=== PATIENT | female | born 1995 | race Caucasian/White ===

== ENCOUNTER 2018-07-16 17:55 | Emergency (ER) | payer OTHER ==
[2018-07-16] MEDS ORDERED: NS 1,000 ML IV ONE (18:07)
[2018-07-16] MEDS ORDERED: HYDROmorphONE/DILAUDID 2 MG/ML INJ IVP ONE (18:07)
--- NOTE | 2018-07-16 18:10 | EDPHY ---
H & P Stated Complaint: periumbilical pain x ~6hours Time Seen by Provider: 07/16/18 18:02 HPI/ROS: CHIEF COMPLAINT: Periumbilical pain HISTORY OF PRESENT ILLNESS: The patient is a 22-year-old female who comes to the emergency department complaining of pain around her umbilicus for the last 6 hr. It is focused and exquisite. It hurts with stretching or movement. She denies any kind of injury or trauma. No fever. No vomiting or diarrhea. She has never had pain like this before. No previous surgical history. No urinary symptoms. No vaginal bleeding or discharge. She denies risk of . She is sexually active but is on control. Severity: Severe Modifying factors: None REVIEW OF SYSTEMS: Constitutional: denies: chills, fever, recent illness, recent injury EENTM: denies: blurred vision, double vision, nose congestion Respiratory: denies: cough, shortness of breath Cardiac: denies: chest pain, irregular heart rate, lightheadedness, palpitations Gastrointestinal/Abdominal: See HPI Genitourinary: denies: dysuria, frequency, hematuria, pain Musculoskeletal: denies: joint pain, muscle pain Skin: denies: lesions, rash, jaundice, bruising Neurological: denies: headache, numbness, paresthesia, tingling, dizziness, weakness Hematologic/Lymphatic: denies: blood clots, easy bleeding, easy bruising Immunologic/allergic: denies: HIV/AIDS, transplant 10 systems reviewed and negative except as noted EXAM: GENERAL: Well-appearing, well-nourished and in no acute distress. HEAD: Atraumatic, normocephalic. EYES: Pupils equal round and reactive to light, extraocular movements intact, sclera anicteric, conjunctiva are normal. ENT: TMs normal, nares patent, oropharynx clear without exudates. Moist mucous membranes. NECK: Normal range of motion, supple without lymphadenopathy or JVD. LUNGS: Breath sounds clear to auscultation bilaterally and equal. No wheezes rales or rhonchi. HEART: Regular rate and rhythm without murmurs, rubs or gallops. ABDOMEN: Exquisite focused periumbilical pain, no palpable hernia, normoactive bowel sounds. no rebound. No masses appreciated. BACK: No CVA tenderness, no spinal tenderness, step-offs or deformities EXTREMITIES: Normal range of motion, no pitting or edema. No clubbing or cyanosis. NEUROLOGICAL: Cranial nerves II through XII grossly intact. Normal speech, normal gait. 5/5 strength, normal movement in all extremities, normal sensation , normal reflexes PSYCH: Normal mood, normal affect. SKIN: Warm, dry, normal turgor, no visible rashes or lesions. Source: Patient Exam Limitations: No limitations - Personal History LMP (Females 10-55): 15-21 Days Ago - Medical/Surgical History Hx Asthma: No Hx Chronic Respiratory Disease: No Hx Diabetes: No Hx Cardiac Disease: No Hx Renal Disease: No Hx Cirrhosis: No Hx Alcoholism: No Hx HIV/AIDS: No Hx Splenectomy or Spleen Trauma: No Other PMH: denies - Family History Significant Family History: No pertinent family hx - Social History Smoking Status: Never smoked Alcohol Use: Sober Drug Use: None Constitutional: Initial Vital Signs Temperature (C) 36.7 C 07/16/18 17:57 Heart Rate 72 07/16/18 17:57 Respiratory Rate 18 07/16/18 17:57 Blood Pressure 108/78 07/16/18 17:57 O2 Sat (%) 97 07/16/18 17:57 O2 Delivery Mode Room Air Allergies/Adverse Reactions: amoxicillin Allergy (Verified 07/16/18 17:56) clavulanic acid [From Augmentin] Allergy (Verified 07/16/18 17:57) Home Medications: Medication Instructions Recorded Ortho-Novum 1-35-28 Tablet 07/16/18 Medical Decision Making - Diagnostics Imaging Results: Imaging Impressions Abdomen CT 07/16/18 18:07 Impression: 1. Normal appendix 2. Constipation. 3. Small amount of free fluid in the cul-de-sac of undetermined etiology. Results discussed with Dr. Zane Vann at 7:35 PM. General information for patients regarding this examination can be found at [email or web address]. If you have questions or comments about this report, please contact me at (hospital) or [phone] (cell). Imaging: Discussed imaging studies w/ studio designer Radiologist ED Course/Re-evaluation: 8:00 p.m. the patient's abdominal pain is resolved. His abdominal exam is benign. We discussed her CT and lab results which are reassuring. She has developed some nausea after the pain medication and is now receiving Zofran. Will plan to discharge her at this point but warned her strictly to return if her symptoms worsen or she develops a fever etc. She again denied vaginal bleeding or discharge and does not wish to have a pelvic exam. Differential Diagnosis: Partial list of the Differential diagnosis considered include but were not limited to; ovarian cyst, hernia, appendicitis and although unlikely based on the history and physical exam, I also considered urinary tract infection, kidney stone PID, , cellulitis. I discussed these differential diagnoses and the plan with the patient as well as the usual and expected course. The patient understands that the diagnosis is provisional and that in medicine we are not always correct and that further workup is often warranted. Usual and customary warnings were given. All of the patient's questions were answered. The patient was instructed to return to the emergency department should the symptoms at all worsen or return, otherwise to followup with the physician as we discussed. - Data Points Laboratory Results: Laboratory Results 07/16/18 18:15 07/16/18 18:15 Medications Given: Discontinued Medications Hydromorphone HCl (Dilaudid) 0.5 mg IVP EDNOW ONE Stop: 07/16/18 18:08 Last Admin: 07/16/18 18:24 Dose: 0.5 mg Sodium Chloride (Ns) 1,000 mls @ 0 mls/hr IV EDNOW ONE; Wide Open PRN Reason: Protocol Stop: 07/16/18 18:08 Last Admin: 07/16/18 18:24 Dose: 1,000 mls Ondansetron HCl (Zofran) 4 mg IVP EDNOW ONE Stop: 07/16/18 19:54 Last Admin: 07/16/18 20:01 Dose: 4 mg Promethazine HCl (Phenergan) 25 mg IVP EDNOW ONE Stop: 07/16/18 20:28 Last Admin: 07/16/18 20:30 Dose: 25 mg Departure - Departure Disposition: Home, Routine, Self-Care Clinical Impression: Abdominal pain Qualifiers: Abdominal location: unspecified location Qualified Code(s): R10.9 - Unspecified abdominal pain Condition: Fair Instructions: Acute Abdominal Pain (ED) Referrals: NONE *PRIMARY CARE P,. [Primary Care Provider] - As per Instructions [facility] [Provider Group] - 1-2 days without fail
[2018-07-16 18:46] LABS: PLATELET COUNT 289 10^3/uL (150-400)
[2018-07-16] MEDS ORDERED: IOPAMIDOL (ISOVUE-300) 100 ML BTL ONE (18:56)
[2018-07-16] MEDS ORDERED: ONDANSETRON 4 MG/2 ML VIAL IVP ONE (19:53)
[2018-07-16] MEDS ORDERED: PROMETHAZINE HCL 25 MG/ML INJ IVP ONE (20:27)
[2018-07-16] MEDS ORDERED: PROMETHAZINE HCL 25 MG/ML INJ ONE (20:27)
[2018-07-16 21:23] VITALS: BP 119/73
== END 2018-07-16 21:23 | disposition home or self-care (01) ==
DX: R10.33 Periumbilical pain (principal); E86.9 Volume depletion, unspecified; Z88.0 Allergy status to penicillin
CPT/HCPCS: 96374; J1170; J2405; J2550; Q9967

== ENCOUNTER 2018-07-25 11:40 | Emergency (ER) | payer OTHER ==
[2018-07-25] MEDS ORDERED: NS 1,000 ML IV ONE (13:42)
[2018-07-25] MEDS ORDERED: KETOROLAC 30 MG/1 ML SDV IVP ONE (13:42)
--- NOTE | 2018-07-25 13:42 | EDPHY ---
General Time Seen by Provider: 07/25/18 13:12 Narrative: CHIEF COMPLAINT: Pelvic cramping pain HISTORY OF PRESENT ILLNESS: Patient presents private vehicle with complaints of pelvic pain and cramping. She reports that she has had some pelvic pain and cramping since last Saturday. It has been constant duration but does come and go. It is mild-to- moderate times. Sometimes severe. No vaginal bleeding or discharge. No flank pain. No urinary complaints. No chest pain or shortness of breath. No upper abdominal pain. She has evaluated here with a CT scan last week that shows constipation and normal appendix. She has only had 1 bowel movement since then. She went to [facility] today where pelvic exam was performed. There was reportedly some tenderness on the exam. Pelvic swabs were obtained which were negative for bacterial vaginosis. Urinalysis was reportedly positive for infection. She was sent here for an ultrasound higher level of care. She reports no object intercourse recently. She reports no IV drug use. No other associated complaints or modifying factors. REVIEW OF SYSTEMS: 10 systems were reviewed and negative with the exception of the elements mentioned in the history of present illness. PCP: [facility] SPECIALISTS: None currently PAST MEDICAL HISTORY: None PAST SURGICAL HISTORY: No abdominal surgeries SOCIAL HISTORY: Nonsmoker. Lives independently. FAMILY HISTORY: Noncontributory EXAMINATION: Vitals: Triage VS reviewed General Appearance: Alert, no distress Head: normocephalic, atraumatic Eyes: Pupils equal and round, no conjunctival pallor or injection ENT, Mouth: Mucous membranes moist Neck: Normal inspection, supple, non-tender Respiratory: Lungs are clear to auscultation Cardiovascular: Regular rate and rhythm Gastrointestinal: Abdomen is soft and nondistended. Mild tenderness in the suprapubic abdomen. No tympany rigidity. No guarding. Bowel sounds present all 4 quadrants. CVA tenderness. . Pelvic exam deferred as this was performed just prior to arrival Back: non-tender, no bony abnormalities Neurological: A&O, nonfocal, normal gait Skin: Warm and dry, no rash Extremities: Nontender, no pedal edema Psychiatric: Mood and affect normal DIFFERENTIAL DIAGNOSES: Including but not limited to PID, torsion, ovarian cysts, ruptured ovarian cysts , fibroids, endometriosis MDM: 1:40 p.m. Lower abdominal pelvic pain for the past 10 days. She was sent over from [facility] with a pelvic exam reportedly revealed some generalized tenderness. She was sent here for an ultrasound of the pelvis. She did reported leukocytosis in the urine. Wet prep was documented is negative. Urine test document is negative. She is in no acute distress with lower abdominal pelvic pain. No upper abdominal pain. I have reviewed the information and CT scan from her last visit here. Her vital signs are within limits. She is in no acute distress. 2:40 p.m. Notified by radiologist. Pelvic ultrasound is negative for any acute findings. No free fluid or ovarian cyst. No torsion. I have reviewed the CT scan from last week which did show a moderate amount of constipation. I re-evaluated the patient discussed this. This is highly likely a potential cause of her pain. We also discussed possibility of endometriosis and other non emergent etiologies. I do not feel that pelvic inflammatory disease is likely given her lack of discharge and normal vitals and laboratory studies. We discussed discharge home with MiraLax and magnesium citrate. We discuss antibiotics for her or UTI. She has received IV Rocephin here without any reaction or difficulty. We discussed ED precautions for any worsening pain, fever, flank pain, difficulty urinating or further difficulty with bowel movement. She will be referred to OB and primary care physician for further care. She is comfortable this plan and discharged home stable condition. SUPERVISION: None CONSULTATION: OB referral - Diagnostics Imaging Results: Imaging Impressions Pelvic/Renal Ultrasound 07/25/18 13:43 Impression: Normal ultrasound pelvis. Results called to Bunny Pearl PA-C, at 2:40 PM. Imaging: Discussed imaging studies w/ call center receptionist Radiologist, I viewed and interpreted images myself - History History Review: I reviewed the patient's medical records Smoking Status: Never smoked - Objective Vital Signs: Initial Vital Signs Temperature (C) 98.4 F 07/25/18 11:46 Heart Rate 76 07/25/18 11:46 Respiratory Rate 18 07/25/18 11:46 Blood Pressure 127/86 H 07/25/18 11:46 O2 Sat (%) 98 07/25/18 11:46 O2 Delivery Mode Room Air Allergies/Adverse Reactions: amoxicillin Allergy (Verified 07/25/18 11:48) clavulanic acid [From Augmentin] Allergy (Verified 07/25/18 11:48) Home Medications: Medication Instructions Recorded Ortho-Novum 1-35-28 Tablet 07/16/18 Cephalexin [Keflex (*)] 500 mg PO BID #14 cap 07/25/18 Laboratory Results: Laboratory Results 07/25/18 14:10 07/25/18 14:10 07/25/18 07/25/18 07/25/18 14:10 14:10 14:10 WBC 9.08 10^3/uL 10^3/uL (3.80-9.50) RBC 4.94 10^6/uL 10^6/uL (4.18-5.33) Hgb 14.2 g/dL g/dL (12.6-16.3) Hct 43.1 % % (38.0-47.0) MCV 87.2 fL fL (81.5-99.8) MCH 28.7 pg pg (27.9-34.1) MCHC 32.9 g/dL g/dL (32.4-36.7) RDW 13.1 % % (11.5-15.2) Plt Count 316 10^3/uL 10^3/uL (150-400) MPV 11.3 fL fL (8.7-11.7) Neut % (Auto) 57.9 % % (39.3-74.2) Lymph % (Auto) 32.5 % % (15.0-45.0) [place] % (Auto) 6.4 % % (4.5-13.0) Eos % (Auto) 1.9 % % (0.6-7.6) Baso % (Auto) 1.0 % % (0.3-1.7) Nucleat RBC Rel Count 0.0 % % (0.0-0.2) Absolute Neuts (auto) 5.26 10^3/uL 10^3/uL (1.70-6.50) Absolute Lymphs (auto) 2.95 10^3/uL 10^3/uL (1.00-3.00) Absolute Monos (auto) 0.58 10^3/uL 10^3/uL (0.30-0.80) Absolute Eos (auto) 0.17 10^3/uL 10^3/uL (0.03-0.40) Absolute Basos (auto) 0.09 10^3/uL 10^3/uL (0.02-0.10) Absolute Nucleated RBC 0.00 10^3/uL 10^3/uL (0-0.01) Immature Gran % 0.3 % % (0.0-1.1) Immature Gran # 0.03 10^3/uL 10^3/uL (0.00-0.10) Sodium 140 mEq/L mEq/L (135-145) Potassium 4.6 mEq/L mEq/L (3.5-5.2) Chloride 108 mEq/L mEq/L (97-110) Carbon Dioxide 21 mEq/l L mEq/l (22-31) Anion Gap 11 mEq/L mEq/L (6-14) BUN 12 mg/dL mg/dL (7-23) Creatinine 0.7 mg/dL mg/dL (0.6-1.0) Estimated GFR > 60 Glucose 81 mg/dL mg/dL (70-100) Calcium 9.2 mg/dL mg/dL (8.5-10.4) Total Bilirubin 0.5 mg/dL mg/dL (0.1-1.4) Conjugated Bilirubin 0.1 mg/dL mg/dL (0.0-0.5) Unconjugated Bilirubin 0.4 mg/dL mg/dL (0.0-1.1) AST 25 IU/L IU/L (14-46) ALT 24 IU/L IU/L (9-52) Alkaline Phosphatase 57 IU/L IU/L (38-126) Total Protein 7.4 g/dL g/dL (6.3-8.2) Albumin 4.3 g/dL g/dL (3.5-5.0) Lipase 80 IU/L IU/L (23-300) Beta HCG, Qual NEGATIVE Urine Color Urine Appearance Urine pH Ur Specific [place] Urine Protein Urine Ketones Urine Blood Urine Nitrate Urine Bilirubin Urine Urobilinogen Ur Leukocyte Esterase Urine RBC Urine WBC Ur Epithelial Cells Urine Bacteria Urine Mucus Urine Glucose C.trachomatis RNA (TMA) N.gonorrhoeae RNA (TMA) 07/25/18 07/25/18 14:05 12:45 WBC RBC Hgb Hct MCV MCH MCHC RDW Plt Count MPV Neut % (Auto) Lymph % (Auto) [place] % (Auto) Eos % (Auto) Baso % (Auto) Nucleat RBC Rel Count Absolute Neuts (auto) Absolute Lymphs (auto) Absolute Monos (auto) Absolute Eos (auto) Absolute Basos (auto) Absolute Nucleated RBC Immature Gran % Immature Gran # Sodium Potassium Chloride Carbon Dioxide Anion Gap BUN Creatinine Estimated GFR Glucose Calcium Total Bilirubin Conjugated Bilirubin Unconjugated Bilirubin AST ALT Alkaline Phosphatase Total Protein Albumin Lipase Beta HCG, Qual Urine Color YELLOW Urine Appearance CLEAR Urine pH 5.0 (5.0-7.5) Ur Specific [place] 1.015 (1.002-1.030) Urine Protein NEGATIVE (NEGATIVE) Urine Ketones TRACE H (NEGATIVE) Urine Blood NEGATIVE (NEGATIVE) Urine Nitrate NEGATIVE (NEGATIVE) Urine Bilirubin NEGATIVE (NEGATIVE) Urine Urobilinogen NEGATIVE EU EU (0.2-1.0) Ur Leukocyte Esterase TRACE H (NEGATIVE) Urine RBC 1-3 /hpf /hpf (0-3) Urine WBC 25-50 /hpf H /hpf (0-3) Ur Epithelial Cells TRACE /lpf /lpf (NONE-1+) Urine Bacteria 1+ /hpf H /hpf (NONE SEEN) Urine Mucus TRACE /lpf /lpf (NONE-1+) Urine Glucose NEGATIVE (NEGATIVE) C.trachomatis RNA (TMA) Pending N.gonorrhoeae RNA (TMA) Pending Medications Given: Discontinued Medications Sodium Chloride (Ns) 1,000 mls @ 0 mls/hr IV EDNOW ONE; Wide Open PRN Reason: Protocol Stop: 07/25/18 13:43 Last Admin: 07/25/18 15:14 Dose: 1,000 mls Ceftriaxone Sodium/Dextrose (Rocephin 1 Gm (Premix)) 50 mls @ 100 mls/hr IV EDNOW ONE PRN Reason: Protocol Stop: 07/25/18 14:49 Last Admin: 07/25/18 15:16 Dose: 50 mls Ketorolac Tromethamine (Toradol) 30 mg IVP EDNOW ONE Stop: 07/25/18 13:43 Last Admin: 07/25/18 15:15 Dose: 30 mg Departure - Departure Disposition: Home, Routine, Self-Care Clinical Impression: Constipation Qualifiers: Constipation type: other constipation type Qualified Code(s): K59.09 - Other constipation UTI (urinary tract infection) Qualifiers: Urinary tract infection type: acute cystitis Hematuria presence: without hematuria Qualified Code(s): N30.00 - Acute cystitis without hematuria Abdominal pain Qualifiers: Abdominal location: lower abdomen, unspecified Qualified Code(s): R10.30 - Lower abdominal pain, unspecified Condition: Good Instructions: Constipation (ED), Urinary Tract Infection in Women (ED), High Fiber Diet (ED), Fleet Enema (ED) Additional Instructions: 1. Keflex as prescribed to completion for UTI 2. Recommend [id number] magnesium citrate. Take half the bottle and wait for 2-4 h. If no bowel movement you take the remainder of the bottle. 3. Recommend [id number] MiraLax. One packet once daily or every other day to prevent further constipation 4. Recommend [id number] Fleet enema at home 5. Follow up with primary care physician and Family Literacy Coordinator physician for further care 6. ED precautions for any worsening pain, fever, difficulty with bowel movement , difficulty urinating Referrals: Natalia Liz DO [Doctor of Osteopathy] - As per Instructions Miri Mejias MD [[facility] Primary Care Provider] - As per Instructions Prescriptions: Cephalexin [Keflex (*)] 500 mg PO BID #14 cap
[2018-07-25 14:17] LABS: PLATELET COUNT 316 10^3/uL (150-400)
[2018-07-25 16:17] VITALS: BP 96/62
[2018-07-28 11:56] LABS: GC AMPLIFICATION GENPROBE NEGATIVE (NEGATIVE)
== END 2018-07-25 16:23 | disposition home or self-care (01) ==
DX: N30.00 Acute cystitis without hematuria (principal); K59.09 Other constipation; E86.9 Volume depletion, unspecified
CPT/HCPCS: 96365; J0696; J1885